=== PATIENT | female | born 1960 | race Caucasian/White ===

== ENCOUNTER 2017-07-05 10:21 | Emergency (ER) | payer OTHER ==
[~2017-07-05] VITALS: Ht 175.3 cm; Wt 90.5 kg
[2017-07-05 10:21] VITALS: BP 179/94; PULSE 57; RESP 16; TEMP 98.7; O2SAT 100
[2017-07-05] MEDS ORDERED: BENI40TA29 PO (10:36)
--- NOTE | 2017-07-05 12:08 | RADRPT ---
EXAM DATE/TIME: 07/05/2017 11:43 [place] COMPARISON: No previous studies available for comparison. INDICATIONS : Vomiting. MEDICAL HISTORY : SURGICAL HISTORY : Cholecystectomy. Lap band surgery 9 years ago, tubes tied ENCOUNTER: Initial ACUITY: 2 weeks PAIN SCORE: 0/10 LOCATION: Bilateral abdomen FINDINGS: Left and device in place with the writing in orthotopic position. Hemoclips in the right upper quadr ant from presumed cholecystectomy. Mild curvature of the lumbar spine convex to the right. The visu alized lower lungs are clear. No dilated loops of small or large bowel. CONCLUSION: No dilated loops of small or large bowel. Damien Nicole MD on July 05, 2017 at 12:05 Board Certified Radiologist. This report was verified electronically.
--- NOTE | 2017-07-05 12:41 | PD ---
HPI Chief Complaint: Medical Clearance Time Seen by Provider: 10:48 Travel History International Travel<30 days: No Contact w/Intl Traveler<30days: No Traveled to known affect area: No History of Present Illness HPI 56-year-old female presents to the emergency department with complaint of vomiting for the past 3 days. Has been nauseated for 2 weeks. She has history of a LAP-BAND 9 years ago and is asking for a band "adjustment." She has had this problem before and they had to adjust the band. Her bariatric surgeon is in [place]. She has tried calling around to other doctors and they are not able to see her until they receive her medical records. She was told to come to the ER. She denies fever, abdominal pain, hematemesis. Says she cannot consume anything without vomiting. She has history of hypertension and cannot keep her medications down. Has not taken any medications or tried any treatments to alleviate symptoms. No known relieving factors. Aggravated by eating, drinking. Dr. Roberto is primary care provider. No known allergies. History of hypertension. Has no other medical complaints. No other modifying factors or associated signs and symptoms. PFSH Past Medical History Hypertension: Yes ?: Not Tubal Ligation: Yes Past Surgical History Abdominal Surgery: Yes (lap band ) Cholecystectomy: Yes Social History Alcohol Use: Yes (occ) Tobacco Use: No Substance Use: No Allergies-Medications (Allergen,Severity, Reaction): Coded Allergies: No Known Allergies (Unverified , 07/05/17) Reported Meds & Prescriptions Reported Meds & Active Scripts Active Reported Benicar (Olmesartan) 40 Mg Tab 40 Mg PO DAILY Review of Systems Except as stated in HPI: all other systems reviewed are Neg Physical Exam Narrative GENERAL: Well-nourished, well-developed female patient, in no acute distress SKIN: Warm and dry. HEAD: Atraumatic. Normocephalic. EYES: Pupils equal and round. No scleral icterus. No injection or drainage. ENT: Mucosa pink and moist. Airway patent. NECK: Trachea midline. CARDIOVASCULAR: Regular rate and rhythm. No murmur appreciated. RESPIRATORY: No accessory muscle use. Breath sounds clear and equal bilaterally. No retractions or tachypnea. GASTROINTESTINAL: Abdomen soft, non-tender, nondistended. Positive bowel sounds. No hepato-splenomegaly, or palpable masses. No guarding. MUSCULOSKELETAL: No obvious deformities. No clubbing. No cyanosis. No edema. NEUROLOGICAL: Awake and alert. Oriented 3. No obvious cranial nerve deficits. Motor grossly within normal limits. Normal speech. PSYCHIATRIC: Appropriate mood and affect; insight and judgment normal. Data Data Last Documented VS Vital Signs Date Time Temp Pulse Resp B/P (MAP) Pulse Ox O2 Delivery O2 Flow Rate FiO2 07/05/17 16:51 07/05/17 10:21 98.7 57 16 100 Room Air Orders Orders Abdomen, Flat & Upright (07/05/17 ) Lidocaine 1% Inj (Xylocaine 1% Inj) (07/05/17 13:45) Cbc No Diff, Includes Plts (07/05/17 15:21) Basic Metabolic Panel (Bmp) (07/05/17 15:21) Ed Discharge Order (07/05/17 16:40) Labs Laboratory Tests Test 07/05/17 15:35 White Blood Count 6.8 TH/MM3 Red Blood Count 4.30 MIL/MM3 Hemoglobin 13.6 GM/DL Hematocrit 40.0 % Mean Corpuscular Volume 92.9 FL Mean Corpuscular Hemoglobin 31.5 PG Mean Corpuscular Hemoglobin Concent 33.9 % Red Cell Distribution Width 13.0 % Platelet Count 313 TH/MM3 Mean Platelet Volume 8.4 FL Blood Urea Nitrogen 8 MG/DL Creatinine 0.72 MG/DL Random Glucose 91 MG/DL Calcium Level 8.8 MG/DL Sodium Level 142 MEQ/L Potassium Level 3.7 MEQ/L Chloride Level 107 MEQ/L Carbon Dioxide Level 29.6 MEQ/L Anion Gap 5 MEQ/L Estimat Glomerular Filtration Rate 84 ML/MIN [facility] Medical Decision Making Medical Screen Exam Complete: Yes Emergency Medical Condition: Yes Medical Record Reviewed: Yes Differential Diagnosis Medical clearance, vomiting, history of lap band Narrative Course 56-year-old female presents requesting lap band adjustment secondary to vomiting for the past 3 days. She has been nauseated for the past 2 weeks. She has had this before. Her bariatric surgeon is in [place]. This procedure was done 9 years ago. She has tried calling doctors in the area and has not been able to get anybody to agree to see her quickly. Says her throat was burning secondary to vomiting so much. She can keep any food or medications down. Denies fever. Is afebrile and nontoxic-appearing. Abdominal x-ray ordered. 1233: Abdomen x-ray conclude: Abdomen X-Ray 07/05/17 0000 Signed Impressions: Service Date/Time: Wednesday, July 05, 2017 11:43 - CONCLUSION: No dilated loops of small or large bowel. Damien Nicole MD Discussed findings with the patient. 1330: I spoke with Dr. Guillory, bariatric surgeon, and he is coming to the bedside to adjust the LAP-BAND for the patient. 1520: Dr. Guillory at [facility]. 1639: CBC and BMP unremarkable. Patient is tolerating water and ice chips without continued vomiting. She reports improvement in symptoms. Instructed patient to follow-up with Dr. Guillory. Instructed patient to follow up with primary care provider. Patient verbalizes understanding and agreement with treatment plan. Patient is medically cleared and stable for discharge. Discussed reasons to return to the emergency department. Patient agrees with treatment plan. The patients vital signs are stable and the patient is stable for outpatient follow-up and treatment. Patient discharged home, stable and in no acute distress. Diagnosis Primary Impression: Vomiting Qualified Codes: R11.10 - Vomiting, unspecified Additional Impression: H/O laparoscopic adjustable gastric banding Referrals: Javi Guillory MD Primary Care Physician Patient Instructions: Acute Nausea and Vomiting (ED), General Instructions Additional Instructions: Follow-up with Dr. Patterson; his information has been provided in your discharge instructions and you can call to make an appointment; [phone] Follow-up with primary care provider Return to the emergency department immediately for worsening of symptoms Med/Other Pt SpecificInfo: No Change to Meds, No Meds Exist/No RX given Disposition: DISCHARGE HOME Condition: Stable Angela Bolanos Jul 05, 2017 12:41
[2017-07-05] MEDS ORDERED: LIDOCAINE HCL 1% 20 ML VIAL INFIL ONE (13:45)
[2017-07-05 16:07] LABS: HEMOGLOBIN 13.6 GM/DL (11.6-15.3); MEAN CELL VOLUME 92.9 FL (80.0-100.0); MEAN CORPUSCULAR HEMOGLOBIN 31.5 PG (27.0-34.0); MEAN CORPUSCULAR HGB CONC 33.9 % (32.0-36.0); MEAN PLATELET VOLUME 8.4 FL (7.0-11.0); PLATELET COUNT 313 TH/MM3 (150-450); WHITE BLOOD COUNT 6.8 TH/MM3 (4.0-11.0)
[2017-07-05 16:13] LABS: BICARBONATE 29.6 MEQ/L (21.0-32.0); CALCIUM 8.8 MG/DL (8.5-10.1); CREATININE 0.72 MG/DL (0.50-1.00)
--- NOTE | 2017-07-05 22:21 | MB ---
cc: MIC GUILLORY MD DATE OF CONSULTATION 07/05/17 CHIEF COMPLAINT Vomiting, history of bariatric surgery, gastric band. HISTORY OF PRESENT ILLNESS The patient is a 56-year-old female who presents with three days of nausea, vomiting and abdominal pain. She states the pain and vomiting has gotten consistently worse. She has difficulty with both liquids and solids, keeping anything down. She states the pain is mild. It is 2/10, sharp in the epigastric region, nonradiating and somewhat persistent. She does have a history of a laparoscopic band placed nine years ago in [place]. She states she has not had any adjustments in a very long time and also had some deflation of the band previously, however, she notes there is likely fluid still contained within the band. Bariatric surgery was consulted for further evaluation. On my exam, the patient is resting a little more comfortably. She does confirm the above including multiple episodes of nausea and vomiting. She states she has only lost approximately 30 pounds with the band, has had some weight gain as well. She has had significant difficulty since having the band in place. PAST MEDICAL HISTORY 1. Morbid obesity, 2. Hypertension. PAST SURGICAL HISTORY 1. Laparoscopic band placement nine years ago in [place] 2. Cholecystectomy, 3. Tubal ligation SOCIAL HISTORY Denies smoking, occasional ETOH, denies IVDA. ALLERGIES NO KNOWN DRUG ALLERGIES. MEDICATIONS See EMR. FAMILY HISTORY Denies coronary artery disease or hypertension. REVIEW OF SYSTEMS GENERAL: Denies fever or chills. HEENT: Denies eye pain, ear pain. NECK: Denies swelling or pain LUNGS: Denies cough or wheeze. HEART: Denies palpitation or chest pain. ABDOMEN: Complained of nausea, vomiting, abdominal pain. : Denies dysuria or hematuria. ENDOCRINE: Denies polyuria, polydipsia. INTEGUMENT: Denies any masses or lesions. NEUROLOGIC: Denies numbness or tingling. PSYCHIATRIC: Denies change in mood or sensorium. PHYSICAL EXAMINATION GENERAL: The patient in no acute distress. VITAL SIGNS: Temperature 98.7, pulse 57, respirations 16, blood pressure 179/94, saturation 100% on room air. HEENT: Pupils equal, round, reactive. NECK: Supple. Trachea midline. LUNGS: Clear to auscultation bilaterally. HEART: S1, S2, regular rhythm. ABDOMEN: Soft, minimal tenderness to palpation epigastric region, palpable abdominal port. Well-healed surgical incisions. EXTREMITIES: Warm, well-perfused. NEUROLOGIC: GCS of 15, 5/5 motor all extremities. PSYCHIATRIC: Appropriate mood and affect. LABORATORY AND DIAGNOSTIC DATA WBC 6.8, hemoglobin 13.6, hematocrit 40, platelets 313. Sodium 142, potassium 3.7, chloride 107, BUN 8, creatinine 0.7, glucose 91, calcium 8.8. IMAGING STUDIES Abdominal x-ray reviewed by myself showing abdominal gastric band in place. ASSESSMENT The patient is a 56 year old female with history of morbid obesity status post laparoscopic band placement with concern for possible slippage versus obstruction. The patient with consider reflux and unable to tolerate p.o. PLAN After full workup, we will access port and deflate band. Discussed with the patient in detail. This was the patient's wishes. Consideration for upper GI pending amount of fluid found in the band. We will not get upper GI in the emergency department. Consider as an outpatient. Following band deflatement, the patient will be able to have p.o. challenge and possible discharge. The patient will need to follow up further in my bariatric office for further discussion on possible intervention in the future as well. PROCEDURE NOTE PREOPERATIVE DIAGNOSIS Morbid obesity, laparoscopic band dysfunction. POSTOPERATIVE DIAGNOSIS Morbid obesity, laparoscopic band dysfunction. PROCEDURE PERFORMED Bedside access of port to deflate band. FINDINGS A 4 1/2 mL laparoscopic band removed. SURGEON Dr. Emy Guillory CAFETERIA COUNTER ATTENDANT None ANESTHESIA 2 mL local anesthetic 1% lidocaine INDICATION The patient is a 56-year-old female status post laparoscopic band placement, now with band obstruction and dysfunction. PROCEDURE IN DETAIL The patient was prepped and draped in usual sterile fashion. Brief time-out done indicating correct patient, procedure and surgical site. Local anesthetic injected anterior to the palpable port. Port was palpated and noted to be in the left upper quadrant. Port was stabilized. A huba needle 1 cm was used to access the port with success. Aspiration of the port with 4.5 mL of fluid was drained. The port was then de-accessed. Sterile dressing including Band-Aid placed. The patient tolerated procedure. The patient is to drink water and was able to do so without issue. MD MIKE Orozco/ /8:38 PM /9:59 PM
== END 2017-07-05 16:52 | disposition home or self-care (01) ==
LOC: NEPD 10:21
DX: R11.10 Vomiting, unspecified (principal); Z98.84 Bariatric surgery status; Z51.89 Encounter for other specified aftercare; I10 Essential (primary) hypertension; E66.01 Morbid (severe) obesity due to excess calories; Z79.899 Other long term (current) drug therapy
CPT/HCPCS: 74019; 80048; 85027; 99284